=== PATIENT | female | born 1960 | race Caucasian/White ===

== ENCOUNTER → 2017-03-19 | Outpatient (CLI) | payer BC | END | disposition home or self-care (01) | LOC: GMA 10:30 | PROVIDERS: ATTEND Nurse Practitioner Family | DX: Z01.419 Encounter for gynecological examination (general) (routine) without abnormal findings (principal) ==

== ENCOUNTER → 2017-03-22 | Outpatient (CLI) | payer BC, SELFPAY ==
--- NOTE | 2017-03-24 11:52 | MRI ---
EXAM DESCRIPTION: Lumbar Spine w/o Contrast CLINICAL HISTORY: LOW BACK PAIN COMPARISON: None Available. TECHNIQUE: MRI of the lumbar spine is performed according to our usual protocol with axial and sagittal multi sequence imaging. FINDINGS: A tiny amount of curvature of the spine convex to the left is present with no abnormality involving the retroperitoneum or paraspinous regions. Multilevel mild disc desiccation is present most prominently at L5-S1 with preservation of vertebral and disc height and vertebral alignment. No abnormal marrow signal is seen in the conus is normally aligned at the thoracolumbar junction without intradural or intramedullary abnormalities noted. L1-2: the disc is well hydrated. There is no loss of height. There is no bulging. The facets are unremarkable with no significant hypertrophy. There is no stenosis or impingement. L2-3: the disc is well hydrated. There is no loss of height. There is no bulging. The facets are unremarkable with no significant hypertrophy. There is no stenosis or impingement. L3-4: the disc is well hydrated. There is no loss of height. There is no bulging. The facets are unremarkable with no significant hypertrophy. There is no stenosis or impingement. L4-5: Mild annular prominence with adequate central canal and mild facet arthropathy with adequate neural foramina bilaterally. L5-S1: Disc desiccation with mild annular prominence and mild bulging of the annulus to the right of midline with a heterogeneous moderately large extruded disc fragment on the right posteriorly significantly compressing the thecal sac and compromising the right lateral recess below the right L5 neural foramen. Right S1 and possibly S2 neural compression should be considered with significant displacement of the S1 nerve root. Central canal stenosis is not apparent. IMPRESSION: 1. Desiccation and annular bulge with slight right-sided prominence at L5-S1 with moderately large right posterior lateral extruded disc fragment compromising the right lateral recess and thecal sac without severe central stenosis. Right S1 and S2 neural compression should be considered. 2. Essentially normal examination from L4-5 cephalad with mild facet arthropathy and minimal disc desiccation without lateralizing disc herniation. Electronically signed by: Nasir Leyva MD 03/24/2017 11:51 AM CDT
== END | disposition home or self-care (01) ==
LOC: MRI 09:02
PROVIDERS: ATTEND Family Medicine
DX: M54.5 Low back pain (principal)

== ENCOUNTER → 2017-03-29 | Outpatient (CLI) | payer SELFPAY ==
--- NOTE | 2017-03-29 14:26 | MAM ---
History: Well woman exam. Date of exam: 03/29/2017 Services provided: Bilateral full field digital screening mammography. CAD, the images were reviewed with R2 computer aided detection. FINDINGS: Glandular tissue is scattered glandular contour. Study is compared with 2012 exam. No dominant mass, architectural distortion or clustered microcalcification. IMPRESSION: Benign exam Recommendation: Routine annual mammography BIRAD CATEGORY: 2 BENIGN Electronically signed by: Deb Bermudez MD 03/29/2017 2:25 PM CDT
== END | disposition home or self-care (01) ==
LOC: MAMMO 08:00
PROVIDERS: ATTEND Family Medicine
DX: Z12.31 Encounter for screening mammogram for malignant neoplasm of breast (principal)

== ENCOUNTER 2017-10-09 19:42 | Emergency (ER) | payer BC ==
[2017-10-09 20:42] VITALS: TEMP 97.9
[2017-10-09] MEDS ORDERED: DEXAMETHASONE INJ 10 MG/ML VIAL PO ONE (20:43)
[2017-10-09] MEDS ORDERED: FAMOTIDINE 20 MG TAB PO STA (20:44)
[2017-10-09] MEDS ORDERED: LIDOCAINE VIS-MYLANTA 30 ML UD PO ONE (20:49)
[2017-10-09] MEDS: diphenhydrAMINE HCL 50 MG/ML VIAL IM ONE ×2 (20:56→21:06)
--- NOTE | 2017-10-09 21:06 | ED.PDOC ---
History of Present Illness - General Chief Complaint: Allergic Reaction Stated Complaint: allergric action Time Seen by Provider: 10/09/17 20:06 Source: patient, family Exam Limitations: no limitations - History of Present Illness Timing/Duration: 1-3 hours Severity: moderate Improving Factors: nothing Worsening Factors: nothing Associated Symptoms: nausea/vomiting, other - associated with abdominal pain. pt reports was eating pecans when the symptoms started acutely. states that develope sever rash, nausea and upper abd pain. no other exposures that she knows Allergies/Adverse Reactions: Allergies NO KNOWN ALLERGY Allergy (Verified 11/12/12 12:48) Home Medications: Ambulatory Orders Atelvia 35 mg PO PRN 10/20/12 B Complex 1 PO AM 10/20/12 Chlorthalidone 25 mg PO AM 10/20/12 Citalopram HBr 20 mg PO AM 10/20/12 Flax Oil 1,200 mg PO AM 10/20/12 Metoprolol Succinate 50 mg PO AM 10/20/12 Wal-Zyr 10 mg PO AM 10/20/12 predniSONE 40 mg PO DAILY #10 tab 10/09/17 Review of Systems - Review of Systems Constitutional: Denies: chills, fever EENTM: Denies: eye pain, blurred vision, double vision, ear pain, ear discharge , throat pain, throat swelling, mouth pain, mouth swelling Respiratory: Denies: cough, orthopnea, short of breath, stridor, wheezing Cardiology: Denies: chest pain, edema, palpitations, syncope Gastrointestinal/Abdominal: States: abdominal pain, nausea Genitourinary: States: no symptoms reported Musculoskeletal: States: no symptoms reported Skin: States: rash Neurological: States: no symptoms reported Endocrine: States: no symptoms reported Hematologic/Lymphatic: States: no symptoms reported Past Medical History (General) - Patient Medical History Hx Seizures: No Hx Stroke: No Hx Dementia: No Hx Asthma: No Hx of COPD: No Hx Cardiac Disorders: No Hx Congestive Heart Failure: No Hx Pacemaker: No Hx Hypertension: Yes Hx Thyroid Disease: No Hx Diabetes: Yes Hx Gastroesophageal Reflux: No Hx Renal Disease: No Hx Cancer: No Hx of HIV: No Hx Hepatitis C: No MRSA Source:: Wound Surgical History: Hysterectomy - Vaccination History Hx Tetanus, Diphtheria Vaccination: No Hx Influenza Vaccination: No Hx Pneumococcal Vaccination: Yes - 2 yrs ago - Social History Hx Tobacco Use: No Hx Alcohol Use: No Hx Substance Use: No Hx Substance Use Treatment: No Hx Depression: No - Female History Patient is a Female of Child Bearing Age (10 -59 yrs old): No - Hystectectomy - Triage Comment ED Triage Comment: Allergric reaction to pecans? states--itching red rash all over. No breathing problems or SOB or throat closure noted. Family Medical History - Family History Mother Family History: Unknown Physical Exam - Physical Exam General Appearance: Alert, Comfortable Ears, Nose, Throat: hearing grossly normal, normal ENT inspection, normal pharynx Neck: non-tender, full range of motion, supple Respiratory: chest non-tender, lungs clear, normal breath sounds, no respiratory distress, no accessory muscle use Cardiovascular/Chest: normal peripheral pulses, regular rate, rhythm Gastrointestinal/Abdominal: normal bowel sounds, non tender, soft Back Exam: normal inspection, no CVA tenderness, no vertebral tenderness Extremity: normal range of motion, non-tender, normal inspection 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 Copy, Patient Portal Self Enrollment Diet: resume usual diet Activity: increase activity as tolerated Referrals: Ck Wang MD [Primary Care Provider] - 1-2 Weeks Prescriptions: predniSONE 40 mg PO DAILY #10 tab Home Medications: Ambulatory Orders Atelvia 35 mg PO PRN 10/20/12 B Complex 1 PO AM 10/20/12 Chlorthalidone 25 mg PO AM 10/20/12 Citalopram HBr 20 mg PO AM 10/20/12 Flax Oil 1,200 mg PO AM 10/20/12 Metoprolol Succinate 50 mg PO AM 10/20/12 Wal-Zyr 10 mg PO AM 10/20/12 predniSONE 40 mg PO DAILY #10 tab 10/09/17 Additional Instructions: take home steroids until finished, avoid all tree nuts and follow up with your pcp, return to the ED if acute worsening of symptoms, mouth edema, problem or concern
[2017-10-09 21:57] VITALS: BP 91/46; O2SAT 95
== END 2017-10-09 21:58 | disposition home or self-care (01) ==
LOC: ER 19:42
DX: T78.09XA Anaphylactic reaction due to other food products, initial encounter (principal); I10 Essential (primary) hypertension
CPT/HCPCS: 93005; J1100; J1200

== ENCOUNTER → 2020-10-03 | Outpatient (CLI) | payer BC | LOC: GMA CAST 14:21 | PROVIDERS: ATTEND Family Medicine Sports Medicine | DX: N30.00 Acute cystitis without hematuria (principal) ==